=== PATIENT | female | born 1960 | race Caucasian/White ===

== ENCOUNTER 2021-04-14 09:54 | Emergency (ER) | payer OTHER ==
[2021-04-14 10:00] VITALS: BP 167/95; PULSE 82; RESP 18; TEMP 98.1
--- NOTE | 2021-04-14 10:18 | ED ---
General Adult HPI - General Chief complaint: Recheck/Abnormal Lab/Rx Stated complaint: med refill Time Seen by Provider: 04/14/21 10:02 Source: patient, RN notes reviewed Mode of arrival: ambulatory Limitations: no limitations - History of Present Illness Initial comments: 61-year-old female presents emergency Department with chief complaint of needing medication refill. Patient states she is out of town and states that her telehealth visits are not going through to her phone. Patient states that she is on Effexor 225 mg she states is comes into prescriptions and states she is on Abilify 5 mg. Patient denies any other complaints of chest pain or shortness breath denies any suicidal or homicidal ideation - Related Data Previous Rx's Medication Instructions Recorded ARIPiprazole [Abilify] 5 mg PO DAILY #14 tab 04/14/21 Venlafaxine HCl ER [Effexor Xr] 150 mg PO DAILY #14 cap 04/14/21 Venlafaxine HCl [Effexor XR] 75 mg PO DAILY #14 cap 04/14/21 Allergies Allergy/AdvReac Type Severity Reaction Status Date / Time No Known Allergies Allergy Verified 04/14/21 10:00 Review of Systems ROS Statement: Those systems with pertinent positive or pertinent negative responses have been documented in the HPI. ROS Other: All systems not noted in ROS Statement are negative. Past Medical History Past Medical History: No Reported History History of Any Multi-Drug Resistant Organisms: None Reported Past Surgical History: Tubal Ligation Past Psychological History: Anxiety, Depression Smoking Status: Never smoker Past Alcohol Use History: None Reported Past Drug Use History: None Reported General Exam Limitations: no limitations General appearance: alert, in no apparent distress Head exam: Present: atraumatic, normocephalic, normal inspection Respiratory exam: Present: normal lung sounds bilaterally. Absent: respiratory distress, wheezes, rales, rhonchi, stridor Cardiovascular Exam: Present: regular rate, normal rhythm, normal heart sounds. Absent: systolic murmur, diastolic murmur, rubs, gallop, clicks Course Vital Signs 04/14/21 09:55 Temperature 98.1 F Pulse Rate 82 Respiratory 18 Rate Blood Pressure 167/95 O2 Sat by Pulse 96 Oximetry Medical Decision Making - Medical Decision Making Patient will be given 2 week prescription for her medications return parameters discussed. Disposition Clinical Impression: Encounter for medication refill Disposition: HOME SELF-CARE Condition: Stable Additional Instructions: Please return to the Emergency Department if symptoms worsen or any other concerns. Prescriptions: ARIPiprazole [Abilify] 5 mg PO DAILY #14 tab Venlafaxine HCl ER [Effexor Xr] 150 mg PO DAILY #14 cap Venlafaxine HCl [Effexor XR] 75 mg PO DAILY #14 cap Is patient prescribed a controlled substance at d/c from ED?: No Referrals: Nonstaff,Physician [Primary Care Provider] - 1-2 days Time of Disposition: 10:18
== END 2021-04-14 10:35 | disposition home or self-care (01) ==
LOC: EC 09:54
DX: Z76.0 Encounter for issue of repeat prescription (principal); F41.9 Anxiety disorder, unspecified; F32.9 Major depressive disorder, single episode, unspecified; Z98.51 Tubal ligation status
CPT/HCPCS: 99281